=== PATIENT | male | born 2005 | race Asian ===

== ENCOUNTER 2025-07-03 18:39 | Emergency (ER) | payer OTHER ==
[~2025-07-03] VITALS: Ht 167.6 cm; Wt 70.0 kg
[2025-07-03 18:47] VITALS: TEMP 98.4
[2025-07-03] MEDS ORDERED: IBUP-1492 PO (18:54)
[2025-07-03] MEDS: IBUPROFEN 600 MG TABLET PO ONE (18:56)
[2025-07-04 01:11] VITALS: BP 128/68; PULSE 85; RESP 18; O2SAT 100
== END 2025-07-04 01:48 | disposition home or self-care (01) ==
LOC: EMS 19:03
DX: S82.401A Unspecified fracture of shaft of right fibula, initial encounter for closed fracture (principal); X50.1XXA Overexertion from prolonged static or awkward postures, initial encounter; Y93.67 Activity, basketball; Y92.89 Other specified places as the place of occurrence of the external cause; Y99.8 Other external cause status
CPT/HCPCS: 99283